=== PATIENT | female | born 1940 | race Caucasian/White ===

== ENCOUNTER → 2016-09-18 | Outpatient (CLI) | payer MEDICARE ==
[~2016-09-18] MED LIST: ASPI1TAB PO; ATEN50TA2 PO; CALC600T21 PO; FISH1000 PO; HYDR25TAB PO; K-TA10TA PO; NIAC500T5 PO; PRAV40TA2 PO; QUIN40TA5 PO
== END ==
LOC: M ONCR 11:23
PROVIDERS: ATTEND Radiology Radiation Oncology
DX: C44.41 Basal cell carcinoma of skin of scalp and neck (principal)

== ENCOUNTER → 2016-10-18 | Outpatient (CLI) | payer MEDICARE ==
--- NOTE | 2016-10-18 12:25 | REPMRS ---
Patient History The patient states she had a clinical breast exam in Patient is postmenopausal. No known family history of cancer. Radio exam Breast Specimen, November 13, 2011. Localization of Breast Nodule of the right breast, November 13, 2011. Benign US guidance needle placement of the right breast, November 11, 2011. Took unspecified hormones for 20 years. Digital Woman Screen Mammo: October 18, 2016 - Exam #: [id number] Bilateral CC and MLO view(s) were taken. Technologist: Lauren Sky, Technologist Prior study comparison: September 12, 2015, digital woman screen mammo performed at [facility]. June 23, 2014, bilateral bilat screen digital mammo, performed at [facility] ([facility] May 13, 2013, bilateral bilat screen digital mammo, performed at [facility] ([facility]). FINDINGS: There are scattered fibroglandular densities. There has been no change in the appearance of the mammogram from the prior studies. There is a mild amount of residual fibroglandular tissue which is fairly symmetric. There is no interval development of dominant mass, architectural distortion, or clustered microcalcification suggestive of malignancy. There are scattered, small, benign calcifications of doubtful clinical significance.There is a benign appearing intramammary node in the upper outer quadrant of the left breast. Skin mole on upper outer quadrant of the left. No significant changes when compared with prior studies. ASSESSMENT: BI-RADS/ACR category 2 mammogram. Benign finding(s). Recommendation Routine screening mammogram in 1 year (for women over age 40). This mammogram was interpreted with the aid of an FDA-approved computer-aided dectection system. A. Negative x-ray reports should not delay biopsy if a dominant or clinically suspicious mass is present. B. Four to eight percent of cancers are not identified by mammography. C. Adenosis and dense breast may obscure an underlying neoplasm. Electronically Signed By: Jefferson Choi MD 10/18/16 [id number]
== END ==
LOC: M WHC 10:28
PROVIDERS: ATTEND Nurse Practitioner Family
DX: Z12.31 Encounter for screening mammogram for malignant neoplasm of breast (principal); Z78.0 Asymptomatic menopausal state; Z92.89 Personal history of other medical treatment
CPT/HCPCS: G0202; G0463

== ENCOUNTER → 2017-03-26 | Outpatient (CLI) | payer MEDICARE ==
[~2017-03-26] MED LIST changes: -CALC600T21 PO; +CALC600T60 PO; +QUIN1TAB15 PO; -QUIN40TA5 PO
--- NOTE | 2017-03-26 14:30 | RADONC ---
RADIATION ONCOLOGY FOLLOWUP NOTE DATE: 03/26/2017 CHART NUMBER: [id number] DIAGNOSIS: Basal cell carcinoma stage II, T2N0M0. ECOG PERFORMANCE STATUS: 0. FOLLOWUP NOTE: Ms. Mitchell is a very pleasant 76-year-old white female with the diagnosis of a stage II, T2N0M0, basal cell carcinoma of her scalp who is presenting to us today for routine followup visit 1 year and 1 month post completion of external beam radiation therapy. The patient presents today reporting that she is doing quite well with no complaints at this time related to her radiation therapy. She has no skin pain. REVIEW OF SYSTEMS: The patient's review of systems is noncontributory. Denies nausea, vomiting, fevers, chills, night sweats, diplopia, headaches, anxiety or depression, anorexia, weight loss, visual disturbances, chest pain, urinary or bowel difficulties, bone pain, or neurological problems. PHYSICAL EXAMINATION: The patient's skin in the treated field shows no evidence of radiation change present. There continues to be a scar present over the basal cell carcinoma site. This is somewhat reduced in size, but is basically unchanged. There are no other lesions over the patient's scalp, face or neck. There is no palpable preauricular, cervical, supraclavicular, or infraclavicular lymphadenopathy. ASSESSMENT: The patient is clinically stable at this point. I have scheduled her to see me again in 4 months for further followup. She will also continue to be followed by her other physicians in the meantime. cc: MD Heather Carlson,
== END ==
LOC: M ONCR 13:06
PROVIDERS: ATTEND Radiology Radiation Oncology
DX: C44.41 Basal cell carcinoma of skin of scalp and neck (principal)

== ENCOUNTER → 2017-08-06 | Outpatient (CLI) | payer MEDICARE ==
--- NOTE | 2017-08-07 10:17 | RADONC ---
RADIATION ONCOLOGY FOLLOWUP NOTE DATE: 08/06/2017 CHART NUMBER: [id number] DIAGNOSIS: Basal cell carcinoma. STATE: II, T2N0M0. ECOG PERFORMANCE STATUS: 0. FOLLOWUP NOTE: Ms. Mitchell is a very pleasant 76-year-old white female with the diagnosis of a stage II, T2N0M0 basal cell carcinoma of her scalp who is presenting to us today for routine followup visit one and a half years post completion of external beam radiation therapy. The patient presents today reporting that she is doing quite well with no complaints at this time related to her radiation therapy or disease. She has no scalp pain or discomfort. REVIEW OF SYSTEMS: The patient's review of systems is noncontributory. Denies nausea, vomiting, fevers, chills, night sweats, diplopia, headaches, anxiety or depression, anorexia, weight loss, visual disturbances, chest pain, urinary or bowel difficulties, bone pain, or neurological problems. PHYSICAL EXAMINATION: The patient's skin shows a continued dry scab over the treated site. This remains unchanged. There is no evidence of moist or dry desquamation. There is no evidence of growth or recurrent disease. There is no palpable preauricular, cervical, supraclavicular, infraclavicular or axillary lymphadenopathy present. The remainder of the patient's physical exam also remains unchanged. Ms. Mitchell remains stable at this point. There continues to be a dry scar present which has been unchanged over the past year. It has neither peeled off nor has it grown at all. We have scheduled the patient to see us again in 6 months for further followup. She will also continue to be followed by her other physicians as well. cc: Heather Ventura,
== END ==
LOC: M ONCR 13:23
PROVIDERS: ATTEND Radiology Radiation Oncology
DX: C44.41 Basal cell carcinoma of skin of scalp and neck (principal)

== ENCOUNTER → 2017-10-28 | Outpatient (CLI) | payer MEDICARE | LOC: M WHC 10:22 | DX: Z12.31 Encounter for screening mammogram for malignant neoplasm of breast (principal); Z01.419 Encounter for gynecological examination (general) (routine) without abnormal findings (principal); Z78.0 Asymptomatic menopausal state; R92.1 Mammographic calcification found on diagnostic imaging of breast; Z92.89 Personal history of other medical treatment; Z12.12 Encounter for screening for malignant neoplasm of rectum | CPT/HCPCS: 77067 ==

== ENCOUNTER → 2018-04-01 | Outpatient (CLI) | payer MEDICARE | LOC: M ONCR 11:08 | DX: Z08 Encounter for follow-up examination after completed treatment for malignant neoplasm (principal); R22.0 Localized swelling, mass and lump, head; Z85.828 Personal history of other malignant neoplasm of skin | CPT/HCPCS: G0463 ==

== ENCOUNTER → 2018-07-01 | Outpatient (CLI) | payer MEDICARE | LOC: M ONCR 11:07 | DX: C44.41 Basal cell carcinoma of skin of scalp and neck (principal) | CPT/HCPCS: G0463 ==

== ENCOUNTER → 2018-10-29 | Outpatient (CLI) | payer MEDICARE ==
[~2018-10-29] MED LIST changes: -QUIN1TAB15 PO; +QUIN1TAB4 PO
--- NOTE | 2018-10-29 12:54 | REPMRS ---
Patient History The patient states she had a clinical breast exam in 11/10 No known family history of cancer. Radio exam Breast Specimen, November 13, 2011. Localization of Breast Nodule of the right breast, November 13, 2011. Benign US guidance needle placement of the right breast, November 11, 2011. Took unspecified hormones for 20 years. 3D TOMOSYNTHESIS WAS PERFORMED. Digital Woman Screen Mammo: October 29, 2018 - Exam #: [id number] Bilateral CC and MLO view(s) were taken. Technologist: Shani Issa, Technologist Prior study comparison: October 28, 2017, digital woman screen mammo performed at [facility]. October 18, 2016, digital woman screen mammo performed at [facility]. FINDINGS: There are scattered fibroglandular densities. There has been no change in the appearance of the mammogram from the prior studies. There is a mild amount of residual fibroglandular tissue which is fairly symmetric. There is no interval development of dominant mass, architectural distortion, or clustered microcalcification suggestive of malignancy. Assessment: BI-RADS/ACR category 1 mammogram. Negative Mammogram. Recommendation Routine screening mammogram in 1 year (for women over age 40). This mammogram was interpreted with the aid of an FDA-approved computer-aided dectection system. Electronically Signed By: Castillo Ruff MD 10/29/18 [id number]
== END ==
LOC: M WHC 10:24
PROVIDERS: ATTEND Nurse Practitioner Family
DX: Z01.419 Encounter for gynecological examination (general) (routine) without abnormal findings (principal); Z12.31 Encounter for screening mammogram for malignant neoplasm of breast; Z92.29 Personal history of other drug therapy; Z12.12 Encounter for screening for malignant neoplasm of rectum
CPT/HCPCS: 77063; 77067; 82270; G0101

== ENCOUNTER → 2019-04-27 | Outpatient (REF) | payer MEDICARE ==
[~2019-04-27] MED LIST changes: -ASPI1TAB PO; +ASPI81TA26 PO; +HYDR-2541 PO; -HYDR25TAB PO
== END ==
LOC: M SFHCPLAZ 20:22
PROVIDERS: ATTEND Surgery
DX: T14.8XXA Other injury of unspecified body region, initial encounter (principal)
CPT/HCPCS: 11104; 88304; G0463

== ENCOUNTER → 2019-06-02 | Outpatient (CLI) | payer MEDICARE ==
--- NOTE | 2019-06-04 10:34 | RADONC ---
RADIATION ONCOLOGY FOLLOWUP NOTE DATE: 06/03/2019 CHART NUMBER: [id number] DIAGNOSIS: Basal cell carcinoma. STAGE: Stage II, T2N0M0. ECOG PERFORMANCE STATUS: 0. FOLLOWUP NOTE: Ms. iMtchell is very pleasant 78-year-old white female with the diagnosis of a basal cell carcinoma of her scalp who is male 3 years and 5 months post completion of external beam radiation therapy. The patient presents today reporting that she is doing quite well with no complaints at this time related to her radiation therapy or disease. She has no skin pain or other problems. The patient's review of systems is noncontributory. Denies nausea, vomiting, fevers, chills, night sweats, diplopia, headaches, anxiety or depression, anorexia, weight loss, visual disturbances, chest pain, urinary or bowel difficulties, bone pain, or neurological problems. PHYSICAL EXAMINATION: The patient's skin on her scalp is an excellent condition with no evidence of residual or recurrent disease. There is no evidence of moist or dry desquamation. There is no palpable preauricular, cervical, supraclavicular, infraclavicular lymphadenopathy present. The remainder of physical exam is within normal limits. Ms. Mitchell is clinically MAEGAN at this time. At this point, I am discharging her from my followup except on a p.r.n. basis. She will continue her close and excellent followup and management with her primary care doctor, Dr. Heather Ventura. She will also continue following up with Adolfo Valdez MD. cc: MD Heather Heart, DO
== END ==
LOC: M ONCR 12:59
PROVIDERS: ATTEND Radiology Radiation Oncology
DX: Z85.828 Personal history of other malignant neoplasm of skin (principal); Z92.3 Personal history of irradiation

== ENCOUNTER 2019-07-13 09:29 | Day surgery (SDC) | payer MEDICARE ==
[~2019-07-13] VITALS: Ht 154.9 cm; Wt 91.2 kg
[~2019-07-13 09:29] MED LIST changes: +HYDR12.55 PO; +LIDOCAINE 1% MDV 20ML VIAL SQ PRN; +METF500T13 PO; +METO1TAB33 PO; +VITA-158 PO; +XARE15TA PO
[2019-07-13] MEDS ORDERED: ceFAZolin SOD 1 GM in D5W MINI-BAG PLUS 50 ML IV ONE (09:45)
[2019-07-13] MEDS ORDERED: KETAMINE HCL 200 MG/20 ML VIAL As Ordered ONE (10:16)
[2019-07-13] MEDS ORDERED: LIDOCAINE 2% INJ 100 MG/5 ML SDV (FOR ANES.) As Ordered ONE (10:17)
[2019-07-13] MEDS ORDERED: ONDANSETRON 4MG/2ML VIAL (J2405) As Ordered ONE (10:17)
[2019-07-13] MEDS ORDERED: dexameTHASONE 4 MG/ML 1ML VIAL (J1100) As Ordered ONE (10:17)
[2019-07-13] MEDS ORDERED: PROPOFOL 200 MG/20 ML VIAL As Ordered ONE (10:17)
[2019-07-13] MEDS ORDERED: MIDAZOLAM INJ 2 MG/2 ML VIAL (J2250) As Ordered ONE (10:18)
[2019-07-13] MEDS ORDERED: fentaNYL 100 MCG/2 ML INJECTION (J3010) As Ordered ONE (10:18)
[2019-07-13] MEDS ORDERED: LR 1,000 ML IV ONE (10:45)
[2019-07-13] MEDS ORDERED: LIDOCAINE W/EPINEPHRINE 1% 20ML VIAL As Ordered ONE (10:56)
[2019-07-13] MEDS ORDERED: BUPIVACAINE HCL 0.25% 10 ML VIAL As Ordered ONE (10:56)
[2019-07-13] MEDS ORDERED: PHENYLephrine HCL 500 MCG/5 ML (100MCG/ML) SYRINGE (J2370) As Ordered ONE (11:19)
--- NOTE | 2019-07-13 12:17 | POST-OPPD ---
Postoperative Procedure Note Date Of Procedure: Jul 13, 2019 PREOPERATIVE DIAGNOSIS: Left leg malignant lesion POSTOPERATIVE DIAGNOSIS: same FINDINGS: Basal cell CA lesion 2x1 cm left multani PROCEDURE: Excision malignant lesion left multani with rhomboid flap closure. SURGEON: Dr Balderas SURGICAL SCRUB TECHNICIAN: Dr Prater ANESTHESIA: Local with sedation SPECIMENS: Left multani lesion FS, Additional margines Left multani lesion. ESTIMATED BLOOD LOSS: 1 cc REPLACED: none DRAINS: none COMPLICATIONS: none POSTOPERATIVE CONDITION: stable BIN BALDERAS DO Jul 13, 2019 12:17
[2019-07-13] MEDS ORDERED: TYLETAB14 PO (12:20)
[2019-07-13 13:00] VITALS: BP 121/61
--- NOTE | 2019-07-15 07:24 | RO ---
DATE OF OPERATION: 07/13/2019 PREOPERATIVE DIAGNOSIS: Malignant lesion left lower leg. POSTOPERATIVE DIAGNOSIS: Malignant lesion left lower leg. PROCEDURE: Excision of malignant lesion left lower leg with rhomboid flap closure. ATTENDING SURGEON: Kajal Rodrigues DO [employer] ATTENDANT: Jill Prater DO ANESTHESIA: Local with sedation. SPECIMENS SENT: Left lower leg lesion frozen section and then additional margins for permanent. ESTIMATED BLOOD LOSS: Minimal blood loss. COMPLICATIONS: None. DRAINS: None. PROCEDURE: This is a 78-year-old female who was seen in our office for evaluation of malignant lesion of the left lower leg. It measures 2 x 1 cm in diameter. It is on the multani. The patient has medical clearance and we are going to the operating room to have it excised with margins and frozen section and have closure performed with flap, possible skin graft. All of the risks, benefits and alternatives were discussed with the patient in detail and she is ready to proceed. On the day of surgery, informed consent was confirmed. The lesion was marked and then she was brought into the operating room. She was placed in supine position. Preoperative antibiotics were given. Sequential stockings placed on the right lower leg and she was prepped and draped in the usual sterile fashion. We started our procedure with infiltrating the area with local anesthesia with 1% lidocaine with epinephrine mixed half and half with 0.25% Marcaine. After the effects of the anesthesia had taken place, the lesion was again remeasured, 2 x 1 cm. Margins are outlined with 2 mm initially and the elliptical incision was carried out. The lesion was marked at 12 o'clock. Frozen section came back with basal cell carcinoma. All the margins had cleared. An additional 2 mm of margins were taken and sent to pathology and then we designed a flap. This is the area where it is tight skin closure, so the flap is the best option for the closure. The flap was designed and we have chosen a rhomboid flap for the closure with design and then elevated using knife and electrocautery. Hemostasis was obtained and then it was set in place without any undue tension with interrupted #4-0 Monocryl sutures. Xeroform dressing with dry gauze and a compression dressing is applied. The patient tolerated the procedure well and transferred to the recovery room in stable condition completely awake. KIM
== END 2019-07-13 13:10 | disposition home or self-care (01) ==
LOC: M SDC 09:29
PROVIDERS: ATTEND Plastic Surgery Surgery of the Hand
DX: C44.719 Basal cell carcinoma of skin of left lower limb, including hip (principal); I10 Essential (primary) hypertension; E11.9 Type 2 diabetes mellitus without complications; I48.91 Unspecified atrial fibrillation; E78.5 Hyperlipidemia, unspecified; Z92.3 Personal history of irradiation; Z79.84 Long term (current) use of oral hypoglycemic drugs; Z79.01 Long term (current) use of anticoagulants; Z79.899 Other long term (current) drug therapy; Z88.8 Allergy status to other drugs, medicaments and biological substances
CPT/HCPCS: 14020; 88305; 88331; J0690; J1100; J2250; J2370; J2405; J3010

== ENCOUNTER 2020-04-05 12:15 | Emergency (ER) | payer MEDICARE ==
[~2020-04-05 12:15] MED LIST changes: -LIDOCAINE 1% MDV 20ML VIAL SQ PRN; +TYLETAB14 PO
[2020-05-06 12:53] LABS: HEMATOCRIT 41.2 % (36.0-47.0); HEMOGLOBIN 13.5 g/dl (12.0-15.5); MEAN CORPUSCULAR HEMOGLOBIN 33.2 pg (27.0-33.0); MEAN CORPUSCULAR HGB CONC 32.8 g/dl (32.0-36.5); MEAN CORPUSCULAR VOLUME 101.2 fl (80.0-96.0); PLATELET COUNT, AUTOMATED 261 10^3/uL (150-450); RED BLOOD COUNT 4.07 10^6/uL (4.00-5.40); WHITE BLOOD COUNT 12.2 10^3/uL (4.0-10.0)
== END 2020-04-05 13:38 | disposition home or self-care (01) ==
LOC: M ED 12:15
DX: L98.9 Disorder of the skin and subcutaneous tissue, unspecified (principal); I48.91 Unspecified atrial fibrillation; E11.9 Type 2 diabetes mellitus without complications; I10 Essential (primary) hypertension; E78.5 Hyperlipidemia, unspecified; Z85.828 Personal history of other malignant neoplasm of skin; Z79.84 Long term (current) use of oral hypoglycemic drugs; Z79.899 Other long term (current) drug therapy

== ENCOUNTER → 2020-10-02 | Outpatient (REF) | payer MEDICARE | LOC: M LAB REF 12:05 | PROVIDERS: ATTEND Surgery | DX: D23.4 Other benign neoplasm of skin of scalp and neck (principal) | CPT/HCPCS: 11042; 11104; 88304; G0463 ==

== ENCOUNTER → 2021-01-09 | Outpatient (CLI) | payer MEDICARE ==
--- NOTE | 2021-01-09 14:56 | REPMRS ---
Patient History The patient states she had a clinical breast exam in 12/2020. Patient is postmenopausal and has history of other cancer at age 66. No known family history of cancer. Radio exam Breast Specimen, November 13, 2011. Localization of Breast Nodule of the right breast, November 13, 2011. Benign US guidance needle placement of the right breast, November 11, 2011. Took unspecified hormones for 20 years. Patient states no breast complaints today. Patient has signed MRS History Sheet. Digital Woman Screen Mammo: January 09, 2021 - Exam #: [id number] Bilateral CC and MLO view(s) were taken. Technologist: Sonali Jaramillo, Technologist Prior study comparison: October 29, 2018, bilateral digital woman screen mammo performed at [facility]. October 28, 2017, digital woman screen mammo performed at [facility]. FINDINGS: There are scattered fibroglandular densities. The Volpara volumetric breast density category is:B. There is a stable area of spiculation in the 12 o'clock position of the right breast unchanged from prior studies consistent with post biopsy fat necrosis. There is a grouping of microcalcifications in the left breast middle 3rd somewhat inferiorly at approximately the 6 o'clock position which merits further evaluation. There has been no other change in the appearance of the mammogram from the prior studies. There is a mild amount of scattered fibroglandular density which is fairly symmetric. There is no other interval development of dominant mass, architectural distortion, or grouped microcalcification suggestive of malignancy. 3-D tomosynthesis shows no additional findings. Assessment: BI-RADS/ACR category 0 mammogram, Incomplete: Need additional imaging evaluation and/or prior mammograms for comparison. Recommendation Special view mammogram of the left breast. This patient's [facility] Lifetime Breast Cancer Risk is estimated at 2.0 %. This mammogram was interpreted with the aid of an FDA-approved computer-aided dectection system. Electronically Signed By: Jeremías Pruitt MD 01/09/21 [id number]
== END ==
LOC: M WHC 12:38
PROVIDERS: ATTEND Advanced Practice Midwife
DX: Z01.419 Encounter for gynecological examination (general) (routine) without abnormal findings (principal); Z12.31 Encounter for screening mammogram for malignant neoplasm of breast; Z78.0 Asymptomatic menopausal state; Z85.89 Personal history of malignant neoplasm of other organs and systems; Z86.018 Personal history of other benign neoplasm; Z92.29 Personal history of other drug therapy; R92.0 Mammographic microcalcification found on diagnostic imaging of breast
CPT/HCPCS: 77063; 77067; G0101

== ENCOUNTER → 2021-01-30 | Outpatient (CLI) | payer MEDICARE ==
--- NOTE | 2021-01-30 10:56 | REP ---
INDICATION: ADDL VIEWS/LEFT BREAST. COMPARISON: 01/09/2021 as well as other prior exams. TECHNIQUE: Magnification views of the left breast are performed. FINDINGS: Clustered microcalcifications are visualized at 6 o'clock in the left breast. Recommend stereotactic biopsy. IMPRESSION: BIRADS/ACR category 4, suspicious. Focal cluster of microcalcifications 6 o'clock left breast. This mammogram was interpreted with the aid of an FDA-approved computer-aided detection system. The patient letter being requested is M4. RECOMMENDATION: Stereotactic biopsy recommended of clustered microcalcifications 6 o'clock left breast. <Electronically signed by Castillo Ruff > 01/30/21 [id number]
== END ==
LOC: M WHC 09:49
PROVIDERS: ATTEND Advanced Practice Midwife
DX: Z12.31 Encounter for screening mammogram for malignant neoplasm of breast (principal); R92.0 Mammographic microcalcification found on diagnostic imaging of breast

== ENCOUNTER → 2021-02-07 | Outpatient (CLI) | payer MEDICARE ==
[2021-02-07 15:12] VITALS: BP 140/84
--- NOTE | 2021-02-08 16:49 | ROOPDOC ---
[facility] Report Of Operation Report of Operation DATE OF PROCEDURE: 02/07/21 DIAGNOSIS: Left breast suspicious calcifications PROCEDURE: Left breast stereotactic biopsy with clip placement SURGEON: Simba Thomas BLOOD LOSS: minimal Lidocaine 1% LOT [id number] Expiration 09/2024 Sodium Bicarbonate 8.4% LOT [id number] Expiration 05/2022 Hydromark clip LOT [id number] Expiration 10/2023 SHAPE: 3 Bx device: Stereotactic Mammotome Revolve Dual Vacuum- assisted Biopsy System 10 G LOT [id number] Expiration 11/2020 REF [id number] Informed consent was obtained in the preop area. The most common risk and possible complications including bleeding, hematoma, bruising, infection, injury to surrounding structures were explained to the patient and patient expressed understanding. Patient was taken to the procedure room and placed prone on the [facility] Breast Biopsy table with the left breast hanging through the table aperture. Left breast was placed into Cranio-Caudal compression and Manager Stone matt images were taken. Suspicious calcifications were identified on the matt images and target was set. CC approach from the bottom was chosen for this procedure. At this time, since we were able to confirm visibility of the suspicious calcifications and patient tolerated prone positioning allowing to proceed with the biopsy, appropriate time out was done stating patients name, date of , and the procedure to be performed. The left breast in CC compression was prepped in the usual fashion. Plain Lidocaine 1% and 8.4% sodium bicarbonate 10:1 mix was used to anesthetize the skin, the biopsy site and tissues along the anticipated biopsy tract. Small skin incision was made with blade number 11. Mammotome 10 G stereotactic breast biopsy device was inserted through the incision and advanced to the previously set coordinates marking the target lesion. Pre-fire imaging was taken to assure appropriate positioning. At this time, Mammotome 10 G breast biopsy device was fired and vacuum assisted biopsies were collected. The biopsy samples were investigated with [employer] system and calcifications were observed. Biopsy samples were then placed in the formaldehyde, marked with patients name and left breast biopsy site, and sent to pathology for evaluation. SHAPE 3 Hydromark clip was placed into the Mammotome biopsy device channel and deployed. Post-deployment imaging was done to assure appropriate clip deployment. Clip was noted in the left breast. At this point, paddle CC compression of the left breast was released and manual pressure was held to decrease harmonic effect and to assure hemostasis. No bleeding was noted upon removal of the pressure. Patient was slowly repositioned and placed into sitting position, and then as sisted off the table. Post-biopsy mammogram of the left breast was obtained and showed clip in expected position. Postprocedural dressing was placed. Patient tolerated procedure well and was taken to the recovery unit in stable condition. Discharge instructions were discussed with the patient and patient expressed understanding. SIMBA THOMAS DO Feb 08, 2021 16:49
== END ==
LOC: M WHCPRO 12:37
PROVIDERS: ATTEND Surgery
DX: N60.82 Other benign mammary dysplasias of left breast (principal)

== ENCOUNTER → 2021-08-06 | Outpatient (CLI) | payer MEDICARE ==
--- NOTE | 2021-08-06 11:44 | REP ---
INDICATION: F/U LT BREAST STEREO BX. COMPARISON: Screening mammogram, 01/09/2021. TECHNIQUE: 2D and 3D left diagnostic mammogram was performed in the CC and MLO orientations. FINDINGS: In the area where there had been suspicious calcifications, there is now a biopsy clip with a small associated mass, consistent with a hematoma. The appearance of the left breast is otherwise stable. IMPRESSION: BIRADS/ACR : Category 2: Benign finding. This mammogram was interpreted with the aid of an FDA-approved computer-aided detection system. The patient letter being requested is M2. RECOMMENDATION: Repeat six-month follow-up evaluation of the left breast at which time of screening exam of the right breast should be performed. <Electronically signed by Amadeo Love > 08/06/21 [id number]
== END ==
LOC: M WHC 10:05
PROVIDERS: ATTEND Nurse Practitioner Women's Health
DX: R92.8 Other abnormal and inconclusive findings on diagnostic imaging of breast (principal); N63.20 Unspecified lump in the left breast, unspecified quadrant
CPT/HCPCS: 77065; G0279

== ENCOUNTER → 2022-01-02 | Outpatient (REF) | payer MEDICARE | LOC: M SFHCDERM 17:43 | PROVIDERS: ATTEND Physician Assistant | DX: L85.9 Epidermal thickening, unspecified (principal) | CPT/HCPCS: 11102; 17000; 17003; 88305; G0463 ==

== ENCOUNTER → 2022-03-06 | Outpatient (CLI) | payer MEDICARE | LOC: M WHC 10:52 | PROVIDERS: ATTEND Family Medicine | DX: Z12.31 Encounter for screening mammogram for malignant neoplasm of breast (principal); Z78.0 Asymptomatic menopausal state ==

== ENCOUNTER → 2023-03-21 | Outpatient (CLI) | payer MEDICARE ==
[~2023-03-21] MED LIST changes: -K-TA10TA PO; +POTA-164 PO
== END ==
LOC: M WHC 10:18
PROVIDERS: ATTEND Family Medicine
DX: Z12.31 Encounter for screening mammogram for malignant neoplasm of breast (principal)

== ENCOUNTER → 2024-06-01 | Outpatient (REF) | payer MEDICARE | LOC: M SFHCDERM 17:45 | PROVIDERS: ATTEND Physician Assistant | DX: L85.9 Epidermal thickening, unspecified (principal); D49.2 Neoplasm of unspecified behavior of bone, soft tissue, and skin ==

== ENCOUNTER → 2024-06-11 | Outpatient (CLI) | payer MEDICARE | LOC: M WHC 10:00 | PROVIDERS: ATTEND Family Medicine | DX: Z12.31 Encounter for screening mammogram for malignant neoplasm of breast (principal) ==

== ENCOUNTER 2024-08-10 13:57 | Emergency (ER) | payer MEDICARE ==
[~2024-08-10] VITALS: Ht 152.4 cm; Wt 84.8 kg
[2024-08-10 14:08] VITALS: TEMP 97.8
[2024-08-10 18:32] LABS: BASO % 0.3 % (0.0-1.0); EOS # 0.3 10^3/uL (0.0-0.5); EOS % 3.6 % (0.0-3.0); HEMATOCRIT 31.3 % (36.0-47.0); HEMOGLOBIN 10.3 g/dl (12.0-15.5); LYMPH # 1.6 10^3/uL (1.5-5.0); LYMPH % 23.2 % (24.0-44.0); MEAN CORPUSCULAR HEMOGLOBIN 35.5 pg (27.0-33.0); MEAN CORPUSCULAR HGB CONC 32.9 g/dl (32.0-36.5); MEAN CORPUSCULAR VOLUME 107.9 fl (80.0-96.0); MONO # 0.8 10^3/uL (0.0-0.8); MONO % 11.7 % (2.0-8.0); NEUTROPHILS # 4.2 10^3/uL (1.5-8.5); NEUTROPHILS % 60.8 % (36.0-66.0); PLATELET COUNT, AUTOMATED 176 10^3/uL (150-450); WHITE BLOOD COUNT 6.9 10^3/uL (4.0-10.0)
[2024-08-10 19:01] LABS: CALCIUM LEVEL 9.5 MG/DL (8.3-10.6); CREATININE FOR GFR 1.91 MG/DL (0.55-1.30); GLOMERULAR FILTRATION RATE 26.8 (>32); POTASSIUM SERUM 4.8 MMOL/L (3.5-5.1)
[2024-08-10 20:00] VITALS: BP 124/58; O2SAT 98
== END 2024-08-10 21:32 | disposition home or self-care (01) ==
LOC: M ED 13:57
DX: N20.0 Calculus of kidney (principal); I48.91 Unspecified atrial fibrillation; E11.9 Type 2 diabetes mellitus without complications; I11.0 Hypertensive heart disease with heart failure; E78.5 Hyperlipidemia, unspecified; M19.90 Unspecified osteoarthritis, unspecified site; Z87.442 Personal history of urinary calculi; Z79.01 Long term (current) use of anticoagulants; Z85.828 Personal history of other malignant neoplasm of skin; I25.10 Atherosclerotic heart disease of native coronary artery without angina pectoris; K80.20 Calculus of gallbladder without cholecystitis without obstruction; Z79.899 Other long term (current) drug therapy; Z88.6 Allergy status to analgesic agent; N17.9 Acute kidney failure, unspecified; I48.11 Longstanding persistent atrial fibrillation; I42.0 Dilated cardiomyopathy

== ENCOUNTER → 2024-08-10 | Outpatient (CLI) | payer MEDICARE ==
[2024-08-10 14:10] LABS: HEMATOCRIT 32.1 % (36.0-47.0); HEMOGLOBIN 10.2 g/dl (12.0-15.5); MEAN CORPUSCULAR HEMOGLOBIN 34.6 pg (27.0-33.0); MEAN CORPUSCULAR HGB CONC 31.8 g/dl (32.0-36.5); MEAN CORPUSCULAR VOLUME 108.8 fl (80.0-96.0); PLATELET COUNT, AUTOMATED 179 10^3/uL (150-450); RED BLOOD COUNT 2.95 10^6/uL (4.00-5.40); WHITE BLOOD COUNT 7.8 10^3/uL (4.0-10.0)
[2024-08-10 14:25] LABS: BASO % 0.4 % (0.0-1.0); EOS # 0.3 10^3/uL (0.0-0.5); EOS % 3.4 % (0.0-3.0); LYMPH # 1.7 10^3/uL (1.5-5.0); LYMPH % 21.1 % (24.0-44.0); MONO # 0.8 10^3/uL (0.0-0.8); MONO % 10.4 % (2.0-8.0); NEUTROPHILS # 5.1 10^3/uL (1.5-8.5); NEUTROPHILS % 64.2 % (36.0-66.0)
[2024-08-10 14:34] LABS: ALBUMIN 3.4 G/DL (3.2-5.2); BILIRUBIN,TOTAL 0.5 MG/DL (0.3-1.2); CALCIUM LEVEL 9.7 MG/DL (8.3-10.6); CREATININE FOR GFR 2.09 MG/DL (0.55-1.30); GLOMERULAR FILTRATION RATE 24.1 (>32); POTASSIUM SERUM 5.1 MMOL/L (3.5-5.1); TOTAL PROTEIN 7.1 G/DL (5.7-8.2)
== END ==
LOC: M LAB 13:30
PROVIDERS: ATTEND Internal Medicine Interventional Cardiology
DX: N17.9 Acute kidney failure, unspecified (principal); I48.11 Longstanding persistent atrial fibrillation; I42.0 Dilated cardiomyopathy

== ENCOUNTER → 2024-12-23 | Outpatient (REF) | payer MEDICARE ==
[2024-12-24 18:55] LABS: PERCENT SATURATION 13.9 % (13.2-45.0)
== END ==
LOC: M LAB REF 17:38
PROVIDERS: ATTEND Internal Medicine Nephrology
DX: N18.9 Chronic kidney disease, unspecified (principal); D63.1 Anemia in chronic kidney disease

== ENCOUNTER → 2025-03-28 | Outpatient (REF) | payer MEDICARE ==
[~2025-03-28] MED LIST changes: -PRAV40TA2 PO; +PRAV40TA85 PO
== END ==
LOC: M SFHCDERM 17:54
PROVIDERS: ATTEND Physician Assistant
DX: C44.42 Squamous cell carcinoma of skin of scalp and neck (principal); C44.329 Squamous cell carcinoma of skin of other parts of face